=== PATIENT | male | born 1955 | race Caucasian/White ===

== ENCOUNTER 2022-03-19 10:29 | Outpatient (CLI) | payer MEDICARE ==
[~2022-03-19] VITALS: Ht 172.7 cm; Wt 74.8 kg
[2022-03-19] MEDS ORDERED: IV NS 0.9% 250 ML IV ONE (10:40)
[2022-03-19] MEDS ORDERED: IOHEXOL-350 100 ML VIAL IV ONE (10:40)
[2022-03-19] MEDS ORDERED: CT SWABBABLE VALVE TRANS SET 1 EA INFUS.SET MC ONE (10:40)
--- NOTE | 2022-03-19 11:40 | NUR ---
CTA/RN PT FROM [facility] CAME FOR CTA. AWAKE,ALERT,ORIENTED.V/S STABLE AFEBRILE HR-51 BPM NORMAL SINUS BRADYCARDIA.NO PAIN REPORTED AT THIS TIME.RIGHT AC #20 HL. NO METOPROLOL IV NEED IT. NITROGLYCERINE 0.04 SL GIVEN ORDERED.
[2022-03-19] MEDS ORDERED: NITROGLYCERIN 0.4 MG/TAB BOTTLE ONE (11:42)
--- NOTE | 2022-03-19 12:10 | NUR ---
CTA/RN CTA DONE.V/S STABLE.PT TRANSFER BACK TO [facility].LEFT WITH PARAMEDICS.
== END 2022-03-19 23:59 | disposition home or self-care (01) ==
LOC: CT 10:29
PROVIDERS: ATTEND Internal Medicine Interventional Cardiology
DX: I65.22 Occlusion and stenosis of left carotid artery (principal); K44.9 Diaphragmatic hernia without obstruction or gangrene; R06.02 Shortness of breath; I70.0 Atherosclerosis of aorta
CPT/HCPCS: 75574; J7050; Q9967